=== PATIENT | female | born 1995 ===

== ENCOUNTER 2017-02-19 05:04 | Emergency (ER) | payer OTHER, BC ==
--- NOTE | 2017-02-19 05:12 | ED CLINICAL REPORT ---
Clinical Report - Physicians/Mid Levels [facility] [address] [place] [address] 02/19/2017 5:03 Patient: TREVOR PASTRANA Time Seen: 05:07; initial patient contact. Arrived- In handcuffs. Police present. HISTORY OF PRESENT ILLNESS Chief Complaint: INTOXICATED. Symptoms started today. Substances abused: Alcohol. Last drink just prior to arrival. She is under influence in ED. No nausea, vomiting, diarrhea, abdominal pain or tremors. Not confused. The symptoms are described as mild. No injuries noted. Similar symptoms previously: None. Recent medical care: Not recently seen/assessed. REVIEW OF SYSTEMS No headache, dizziness or difficulty breathing. All systems otherwise negative, except as recorded above. PAST HISTORY See nurses notes. Anxiety Reaction. SURGERIES: Adenoidectomy. Tonsillectomy. Medications: None. Allergies: No Known Drug Allergy. SOCIAL HISTORY Current every day smoker. Regular alcohol use. No drug use. ADDITIONAL NOTES The nursing notes have been reviewed. PHYSICAL EXAM Vital Signs: 02/19/2017 05:00 BP: 145/71. HR: 122. RR: 18. O2 saturation: 100%. Temp: 98.5 F. Pain level now: 5/10. Have been reviewed. Hypertensive. Tachycardic. Respiratory rate normal. Temperature normal. Oxygen saturation normal. Appearance: Alert. No acute distress. The patient's speech is slurred and odor of alcohol is present. Head: Head atraumatic. ENT: Normal ENT inspection. Airway intact. Dry mucous membranes present. CVS: Normal heart rate and rhythm. Heart sounds normal. Respiratory: No respiratory distress. Breath sounds normal. Abdomen: Soft and nontender. The bowel sounds are not abnormal. Skin: Skin warm and dry. Normal skin color. Extremities: No lower extremity edema. Neuro: Alert. Oriented X 3. Mood/affect normal. PROGRESS AND PROCEDURES Disposition: Discharged to intermediate in good condition. Condition: good. CLINICAL IMPRESSION Uncomplicated alcohol intoxication. No alcohol intoxication with delirium or alcohol dependence. INSTRUCTIONS No alcohol. (Clear to book). Follow-up: Follow up with your doctor in about three days. Call for an appointment. Screening today revealed the patient's blood pressure to be in the hypertensive range. The patient should follow up with a primary care provider for blood pressure management. (Electronically signed by Hung Brand Dr. 02/19/2017 5:24)
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
--- NOTE | 2017-02-19 05:12 | ED CLINICAL REPORT ---
Clinical Report - Physicians/Mid Levels [facility] [address] [place] [place] [address] 02/19/2017 5:03 Patient: TREVOR PASTRANA Time Seen: 05:07; initial patient contact. Arrived- In handcuffs. Police present. HISTORY OF PRESENT ILLNESS Chief Complaint: INTOXICATED. Symptoms started today. Substances abused: Alcohol. Last drink just prior to arrival. She is under influence in ED. No nausea, vomiting, diarrhea, abdominal pain or tremors. Not confused. The symptoms are described as mild. No injuries noted. Similar symptoms previously: None. Recent medical care: Not recently seen/assessed. REVIEW OF SYSTEMS No headache, dizziness or difficulty breathing. All systems otherwise negative, except as recorded above. PAST HISTORY See nurses notes. Anxiety Reaction. SURGERIES: Adenoidectomy. Tonsillectomy. Medications: None. Allergies: No Known Drug Allergy. SOCIAL HISTORY Current every day smoker. Regular alcohol use. No drug use. ADDITIONAL NOTES The nursing notes have been reviewed. PHYSICAL EXAM Vital Signs: 02/19/2017 05:00 BP: 145/71. HR: 122. RR: 18. O2 saturation: 100%. Temp: 98.5 F. Pain level now: 5/10. Have been reviewed. Hypertensive. Tachycardic. Respiratory rate normal. Temperature normal. Oxygen saturation normal. Appearance: Alert. No acute distress. The patient's speech is slurred and odor of alcohol is present. Head: Head atraumatic. ENT: Normal ENT inspection. Airway intact. Dry mucous membranes present. CVS: Normal heart rate and rhythm. Heart sounds normal. Respiratory: No respiratory distress. Breath sounds normal. Abdomen: Soft and nontender. The bowel sounds are not abnormal. Skin: Skin warm and dry. Normal skin color. Extremities: No lower extremity edema. Neuro: Alert. Oriented X 3. Mood/affect normal. PROGRESS AND PROCEDURES Disposition: Discharged to alf in good condition. Condition: good. CLINICAL IMPRESSION Uncomplicated alcohol intoxication. No alcohol intoxication with delirium or alcohol dependence. INSTRUCTIONS No alcohol. (Clear to book). Follow-up: Follow up with your doctor in about three days. Call for an appointment. Screening today revealed the patient's blood pressure to be in the hypertensive range. The patient should follow up with a primary care provider for blood pressure management. (Electronically signed by Hung Brand Dr. 02/19/2017 5:24)
--- NOTE | 2017-02-19 07:06 | ED DISCHARGE INSTRUCTIONS ---
Patient: TREVOR PASTRANA General Instructions [facility] VisitID: [id number] [place] [address] 21y, F Registration Date/Time: 02/19/2017 Uncomplicated alcohol intoxication. No alcohol intoxication with delirium or alcohol dependence. INSTRUCTIONS No alcohol. (Clear to book). Follow-up: Follow up with your doctor in about three days. Call for an appointment. Screening today revealed the patient's blood pressure to be in the hypertensive range. The patient should follow up with a primary care provider for blood pressure management. ADDITIONAL INFORMATION Alcohol Intoxication Alcohol intoxication occurs when you drink alcohol faster than your liver can remove it from your system. Alcohol intoxication affects your judgment and coordination. Very high blood alcohol levels can cause coma, very slow breathing and even . If you drink alcohol every day, this may gradually cause permanent damage to your liver, brain, heart, pancreas and other organs. Alcohol use during may cause permanent damage to the growing baby. Home Care: Do not drink any more alcohol. DO NOT DRIVE until all effects of the alcohol have worn off. Get lots of rest over the next few days. Drink plenty of water and other non-alcoholic liquids. Try to eat regular meals. If you have been drinking heavily on a daily basis, you may go through alcohol withdrawl. This is also called the shakes or DTs. The usual symptoms last 3 to 4 days and may include nervousness, shakiness, nausea, sweating or sleeplessness. During this time, it is best that you stay with family or friends who can help and support you. You can also admit yourself to a residential detox program. If your symptoms are severe, contact your doctor for medicines to help. Follow Up: If alcohol is causing a problem in your life, these and other organizations can help you: Alcoholics Anonymous offers support through a self-help fellowship. There are no dues or fees. See the Yellow Pages and call for time and place of meetings. www.aa.org [employer]ha offers support to families of alcohol users. 581.918.9211 www.al-anon.org National [place] On Alcoholism And Drug Dependence 745-333-4002 www.ncadd.org There are also inpatient or residential alcohol detox programs. Check the Internet or phonebook Yellow Pages under Drug Abuse & Treatment Centers. Get Prompt Medical Attention if any of the following occur: there) You have been given the following additional information: Alcohol Intoxication (Electronically signed by Hung Brand Dr. 02/19/2017 5:24)
--- NOTE | 2017-02-19 07:06 | ED MAR SUMMARY ---
..... Medication Administration Record [facility] [address] [id number] Patient: TREVOR PASTRANA Visit ID: [id number] 21y, F Weight: 79.8 kg Height/Length: 62 in BMI: 32.2 ALLERGIES: No Known Drug Allergy
--- NOTE | 2017-02-19 07:06 | ED MED RECONCILIATION SUMMARY ---
Patient: TREVOR PASTRANA Medication Reconciliation Report [facility] VisitID: [id number] [address] [place] [address] 21y, F Registration Date/Time: 02/19/2017 Weight: 79.8 kg Height/Length: 62 in. BMI: 32.2 ALLERGIES: No Known Drug Allergy The patient's Home Medications are listed below: NONE. The source(s) of the original Home Medication information: patient The following Medications were given to the patient in the Emergency Department: None. The following Medications were prescribed to the patient: None.
--- NOTE | 2017-02-19 07:06 | ED DISCHARGE INSTRUCTIONS ---
Patient: TREVOR PASTRANA General Instructions [facility] VisitID: [id number] [place] [address] 21y, F Registration Date/Time: 02/19/2017 Uncomplicated alcohol intoxication. No alcohol intoxication with delirium or alcohol dependence. INSTRUCTIONS No alcohol. (Clear to book). Follow-up: Follow up with your doctor in about three days. Call for an appointment. Screening today revealed the patient's blood pressure to be in the hypertensive range. The patient should follow up with a primary care provider for blood pressure management. ADDITIONAL INFORMATION Alcohol Intoxication Alcohol intoxication occurs when you drink alcohol faster than your liver can remove it from your system. Alcohol intoxication affects your judgment and coordination. Very high blood alcohol levels can cause coma, very slow breathing and even . If you drink alcohol every day, this may gradually cause permanent damage to your liver, brain, heart, pancreas and other organs. Alcohol use during may cause permanent damage to the growing baby. Home Care: Do not drink any more alcohol. DO NOT DRIVE until all effects of the alcohol have worn off. Get lots of rest over the next few days. Drink plenty of water and other non-alcoholic liquids. Try to eat regular meals. If you have been drinking heavily on a daily basis, you may go through alcohol withdrawl. This is also called the shakes or DTs. The usual symptoms last 3 to 4 days and may include nervousness, shakiness, nausea, sweating or sleeplessness. During this time, it is best that you stay with family or friends who can help and support you. You can also admit yourself to a residential detox program. If your symptoms are severe, contact your doctor for medicines to help. Follow Up: If alcohol is causing a problem in your life, these and other organizations can help you: Alcoholics Anonymous offers support through a self-help fellowship. There are no dues or fees. See the Yellow Pages and call for time and place of meetings. www.aa.org [employer] offers support to families of alcohol users. 909.650.5066 www.al-anon.org National [place] On Alcoholism And Drug Dependence 855-853-2272 www.ncadd.org There are also inpatient or residential alcohol detox programs. Check the Internet or phonebook Yellow Pages under Drug Abuse & Treatment Centers. Get Prompt Medical Attention if any of the following occur: there) You have been given the following additional information: Alcohol Intoxication (Electronically signed by Hung Brand Dr. 02/19/2017 5:24)
--- NOTE | 2017-02-19 07:06 | ED MAR SUMMARY ---
..... Medication Administration Record [facility] [address], [place] [id number] Patient: TREVOR PASTRANA Visit ID: [id number] 21y, F Weight: 79.8 kg Height/Length: 62 in BMI: 32.2 ALLERGIES: No Known Drug Allergy
--- NOTE | 2017-02-19 07:06 | ED MED RECONCILIATION SUMMARY ---
Patient: TREVOR PASTRANA Medication Reconciliation Report [facility] VisitID: [id number] [address] [place] [address] 21y, F Registration Date/Time: 02/19/2017 Weight: 79.8 kg Height/Length: 62 in. BMI: 32.2 ALLERGIES: No Known Drug Allergy The patient's Home Medications are listed below: NONE. The source(s) of the original Home Medication information: patient The following Medications were given to the patient in the Emergency Department: None. The following Medications were prescribed to the patient: None.
== END 2017-02-19 05:30 | disposition home or self-care (01) ==
LOC: ED SRH 05:04
DX: F10.120 Alcohol abuse with intoxication, uncomplicated (principal); F17.210 Nicotine dependence, cigarettes, uncomplicated